=== PATIENT | female | born 1970 | race Caucasian/White ===

== ENCOUNTER 2025-05-31 07:47 | Day surgery (SDC) | payer BC ==
[~2025-05-31 07:47] MED LIST: Sodium Chloride 0.9% 10 ML Syringe FLUSH PRN; Sodium Chloride 0.9% 2.5 ML Syringe FLUSH PRN
[2025-05-31] MEDS ORDERED: Ondansetron 4 MG/2 ML SDV ONE (07:55)
[2025-05-31] MEDS ORDERED: Propofol 200 MG/20 ML SDV ONE (07:55)
[2025-05-31] MEDS ORDERED: Midazolam 1 MG/ML 2 ML SDV ONE (07:55)
[2025-05-31] MEDS ORDERED: Dexamethasone 4 MG/ML 5 ML MDV ONE (07:55)
[2025-05-31] MEDS ORDERED: fentaNYL 100 MCG/2 ML SDV ONE (07:55)
[2025-05-31] MEDS ORDERED: Ondansetron 4 MG/2 ML SDV IVPUSH PRN (07:59)
[2025-05-31] MEDS ORDERED: Albuterol 0.083% 2.5 MG/3 ML Neb Soln NEB PRN (07:59)
[2025-05-31] MEDS ORDERED: Naloxone 0.4 MG/ML SDV IVPUSH PRN (07:59)
[2025-05-31] MEDS: Scopalamine 1mg/3day Transdermal Patch TOP ONE (08:11)
[2025-05-31] MEDS: Lactated Ringers 1,000 ML IV SCH (08:22)
[2025-05-31] MEDS ORDERED: Ketorolac 30 MG/ML SDV ONE (10:15)
[2025-05-31] MEDS: fentaNYL 50 MCG/ML SDV IVPUSH PRN (10:37)
== END 2025-05-31 11:30 | disposition home or self-care (01) ==
LOC: MW.SDS 07:47
PROVIDERS: ATTEND Obstetrics & Gynecology
DX: N85.8 Other specified noninflammatory disorders of uterus (principal); I10 Essential (primary) hypertension; F41.9 Anxiety disorder, unspecified; Z88.0 Allergy status to penicillin; Z88.8 Allergy status to other drugs, medicaments and biological substances; Z88.2 Allergy status to sulfonamides; Z87.891 Personal history of nicotine dependence; Z79.899 Other long term (current) drug therapy
CPT/HCPCS: 00952; A9270-GY; J1100; J1885; J2003; J2250; J2405; J2704; J3010; J7120